=== PATIENT | male | born 1975 | race Caucasian/White ===

== ENCOUNTER → 2016-11-11 | Day surgery (SDC) | payer OTHER ==
[~2016-11-11] VITALS: Ht 200.7 cm; Wt 137.9 kg
[~2016-11-11] MED LIST: GLUCOPHAGE1000 MG PO; METFORMIN HCL500 MG PO; PRAVACHOL80 MG PO; SYNTHROID150 MCG PO; TRAMADOL HCL50 MG PO; VITAMIN D50000 UNIT PO; XARELTO15 MG PO
[2016-11-11 07:06] LABS: HCT 41.8 % (42.0-52.0); HGB 14.5 g/dl (13.2-18.0); MCH 29.9 pg (25.0-31.0); MCHC 34.7 g/dL (32.0-36.0); MCV 86.2 fL (78.0-100.0); MPV 8.4 fL (6.0-9.5); RBC 4.85 M/uL (4.70-6.00)
[2016-11-11 07:28] LABS: ALBUMIN 4.3 g/dL (3.5-5.0); BILIRUBIN - TOTAL 0.8 mg/dL (0.1-1.0); CREATININE 1.1 mg/dL (0.7-1.2); GLOBULIN (CALCULATION) 2.9 g/dL (2.2-4.2); POTASSIUM 4.1 mmol/L (3.5-5.1); TOTAL PROTEIN 7.2 g/dL (6.4-8.3)
== END | disposition home or self-care (01) ==
LOC: FAS 07:11
PROVIDERS: Surgery
DX: K80.10 Calculus of gallbladder with chronic cholecystitis without obstruction (principal); E03.9 Hypothyroidism, unspecified; E11.9 Type 2 diabetes mellitus without complications; N20.0 Calculus of kidney; Z91.041 Radiographic dye allergy status; Z90.89 Acquired absence of other organs; Z86.718 Personal history of other venous thrombosis and embolism; Z82.49 Family history of ischemic heart disease and other diseases of the circulatory system; Z80.51 Family history of malignant neoplasm of kidney; Z79.84 Long term (current) use of oral hypoglycemic drugs; Z79.899 Other long term (current) drug therapy; Z98.890 Other specified postprocedural states
CPT/HCPCS: 36415; 80053; J1170; J2405; J2704; J2710; J3010